=== PATIENT | male | born 1990 ===

== ENCOUNTER 2018-03-06 09:58 | Emergency (ER) | payer OTHER ==
[2018-03-06 10:21] VITALS: TEMP 98.9
--- NOTE | 2018-03-06 11:11 | ED PDOC ---
Arrival/HPI - General Historian: Patient - History of Present Illness Narrative History of Present Illness (Text): 03/06/18 11:07 27-year-old male presents today with right ankle pain status post injury last night. Patient states he was playing soccer and someone kicked him in the ankle instead of kicking a ball. Patient is complaining of pain and swelling to the ankle. Patient states he is able to ambulate only with a limp. He denies numbness weakness or tingling in the extremity. He denies calf pain. Denies proximal fibular pain. No medications have been taken for pain at home. No other complaints <Piper Soto - Last Filed: 03/06/18 14:16> <Yair Gavin - Last Filed: 03/08/18 17:50> - General Chief Complaint: Lower Extremity Problem/Injury Time Seen by Provider: 03/06/18 10:50 Past Medical History - Provider Review Nursing Documentation Reviewed: Yes - Travel History Have you recently traveled outside [place] w/in the past 3 mons?: No - Tetanus Immunization Tetanus Immunization: Unknown - Psychiatric Hx Psychophysiologic Disorder: No Hx Substance Use: No - Surgical History Hx Appendectomy: Yes <Piper Soto - Last Filed: 03/06/18 14:16> Family/Social History - Physician Review Nursing Documentation Reviewed: Yes Family/Social History: Unknown Family HX Smoking Status: Never Smoked Hx Alcohol Use: Yes Frequency of alcohol use: Socially Hx Substance Use: No <Piper Soto - Last Filed: 03/06/18 14:16> Allergies/Home Meds <Piper Soto - Last Filed: 03/06/18 14:16> <Yair Gavin - Last Filed: 03/08/18 17:50> Allergies/Adverse Reactions: Allergies No Known Allergies Allergy (Verified 03/06/18 10:17) Review of Systems - Review of Systems Constitutional: absent: Fatigue, Fevers Respiratory: absent: SOB, Cough Cardiovascular: absent: Chest Pain, Palpitations Gastrointestinal: absent: Abdominal Pain, Nausea, Vomiting Musculoskeletal: Arthralgias (right ankle pain) Skin: absent: Rash, Pruritis Neurological: absent: Headache, Dizziness Psychiatric: absent: Anxiety, Depression <Piper Soto - Last Filed: 03/06/18 14:16> Physical Exam Vital Signs Reviewed: Yes Vital Signs Temp Pulse Resp BP Pulse Ox 03/06/18 10:17 98.9 F 72 16 121/83 98 Temperature: Afebrile Blood Pressure: Normal Pulse: Regular Respiratory Rate: Normal Appearance: Positive for: Well-Appearing, Non-Toxic, Comfortable Pain Distress: None Mental Status: Positive for: Alert and Oriented X 3 - Systems Exam Head: Present: Atraumatic Mouth: Present: Moist Mucous Membranes Respiratory/Chest: Present: Clear to Auscultation Cardiovascular: Present: Regular Rate and Rhythm Lower Extremity: Present: NORMAL PULSES, Tenderness (right ankle; + edema, no ecchymosis; limited ROM of ankle with pain; no foot tenderness. sensation and distal pulses intact. cap refill <2. no achilles tendon tenderness. no proximal fibular tenderness. ), Swelling, Neurovascularly Intact, Capillary Refill < 2 s. No: CALF TENDERNESS, Normal ROM, Erythema, Deformity Neurological: Present: GCS=15 Skin: Present: Warm, Dry Psychiatric: Present: Alert, Oriented x 3 <Piper Soto - Last Filed: 03/06/18 14:16> Vital Signs Temp Pulse Resp BP Pulse Ox 03/06/18 14:25 77 18 129/76 100 03/06/18 10:17 98.9 F 72 16 121/83 98 <Yair Gavin - Last Filed: 03/08/18 17:50> Medical Decision Making ED Course and Treatment: 03/06/18 11:09 Patient nontoxic well-appearing in no distress with stable vital signs X-rays of the right ankle; no fracture as read by the radiologist jean burns Patient placed in short leg posterior splint. crutches given for ambulation. I discussed all results in depth with the patient advised to followup with the orthopedist within the next 2 days. Advised return if symptoms worsen persist or new symptoms develop i advised the patient that although the xrays show no fracture; there is still a possibility for ligamentous or tendon injury the patient must see the orthopedist for further evaluation. Patient verbalizes understanding of discharge instructions and need for immediate followup. Impression: Ankle pain, ankle swelling Motrin every 6 hours as needed for pain Rest, ice, compression, elevation Use crutches for ambulation Followup with the orthopedist within the next 2 days Followup with primary care physician within the next 2 days Return if symptoms worsen persist or if new symptoms develop - RAD Interpretation Radiology Orders: 03/06/18 10:51 ANKLE RIGHT 3 VIEWS ROUTINE [RAD] Stat - Medication Orders Current Medication Orders: Discontinued Medications Ibuprofen (Motrin Tab) 600 mg PO STAT STA Stop: 03/06/18 10:54 <Piper Soto T - Last Filed: 03/06/18 14:16> ED Course and Treatment: 03/08/18 17:50 The documented history was done by the physician business law teacher. The documented physical exam was done by the physician business law teacher. The documented procedures were done by the physician business law teacher, I was available for consultation during the PA/RISK CONTROL DIRECTOR evaluation. The chart was reviewed by me, and I agree with the management and plan. - RAD Interpretation Radiology Orders: 03/06/18 10:51 ANKLE RIGHT 3 VIEWS ROUTINE [RAD] Stat - Medication Orders Current Medication Orders: Discontinued Medications Ibuprofen (Motrin Tab) 600 mg PO STAT STA Stop: 03/06/18 10:54 Last Admin: 03/06/18 11:17 Dose: 600 mg MAR Pain/Vitals Document 03/06/18 11:17 EQ (Rec: 03/06/18 11:17 EQ [id number]) Pain Reassessment Is This A Pain ReAssessment? No Sleep Is patient sleeping during reassessment? No Presence of Pain Presence of Pain Yes <Yair Gavin - Last Filed: 03/08/18 17:50> Procedures - Splinting Location: right ankle Hand-Made Type: fiberglass Splint: posterior short leg splint Pre-Proc Neuro Vasc Exam: normal Post-Proc Neuro Vasc Exam: normal <Piper Soto - Last Filed: 03/06/18 14:16> Disposition/Present on Arrival - Present on Arrival Any Indicators Present on Arrival: No History of DVT/PE: No History of Uncontrolled Diabetes: No Urinary Catheter: No History of Decub. Ulcer: No History Surgical Site Infection Following: None - Disposition Have Diagnosis and Disposition been Completed?: Yes Disposition Time: 11:11 Patient Plan: Discharge <Piper Soto - Last Filed: 03/06/18 14:16> <Yair Gavin - Last Filed: 03/08/18 17:50> - Disposition Diagnosis: Ankle pain Disposition: HOME/ ROUTINE Condition: GOOD Discharge Instructions (ExitCare): Ankle Sprain (DC) Additional Instructions: Motrin every 6 hours as needed for pain Rest, ice, compression, elevation Use crutches for ambulation Followup with the orthopedist within the next 2 days Followup with primary care physician within the next 2 days Return if symptoms worsen persist or if new symptoms develop Prescriptions: Ibuprofen [Motrin] 600 mg PO Q6H PRN #20 tab PRN Reason: pain/fever reduction Referrals: Pradeep Canales MD [Staff Provider] - Follow up with primary Ely Wyatt DPM [Staff Provider] - Follow up with primary [facility] [Outside] - Follow up with primary [facility] [place] [Outside] - Follow up with primary [facility] [Outside] - Follow up with primary Forms: [employer] (Moroccan), WORK NOTE
--- NOTE | 2018-03-06 13:04 | RAD ---
Date of service: 03/06/2018 PROCEDURE: Right Ankle Radiographs. HISTORY: pain and swelling s/p injury last night COMPARISON: None FINDINGS: BONES: Normal. No fracture. JOINTS: Normal. No osteoarthritis. Ankle mortise maintained. Talar dome intact SOFT TISSUES: There is moderate soft tissue swelling on the medial and lateral side OTHER FINDINGS: None. IMPRESSION: Soft tissue swelling with no fracture
[2018-03-06 15:35] VITALS: BP 129/76; PULSE 77; RESP 18; O2SAT 100
== END 2018-03-06 14:25 | disposition home or self-care (01) ==
LOC: ED 09:58
DX: M25.571 Pain in right ankle and joints of right foot (principal)

== ENCOUNTER 2018-06-11 09:35 | Outpatient (CLI) | payer OTHER | END 2018-06-11 09:36 | disposition home or self-care (01) | LOC: RAD 09:35 ==

== ENCOUNTER 2018-10-24 09:08 | Outpatient (CLI) | payer OTHER | END 2018-10-24 09:09 | disposition home or self-care (01) | LOC: LAB 09:08 ==